=== PATIENT | female | born 1950 | race Caucasian/White ===

== ENCOUNTER → 2016-11-02 | Outpatient (CLI) | payer OTHER ==
[~2016-11-02] MED LIST: IOPAMIDOL (ISOVUE-300) 100 ML BTL IV ONE
== END ==
LOC: FIMAGING 14:19
PROVIDERS: ATTEND Surgery
DX: M47.892 Other spondylosis, cervical region (principal); M43.12 Spondylolisthesis, cervical region; I70.0 Atherosclerosis of aorta; I51.7 Cardiomegaly
CPT/HCPCS: Q9967

== ENCOUNTER → 2016-12-05 | Outpatient (CLI) | payer OTHER | LOC: FIMAGING 15:49 | PROVIDERS: ATTEND Internal Medicine | DX: Z12.31 Encounter for screening mammogram for malignant neoplasm of breast (principal); Z80.3 Family history of malignant neoplasm of breast | CPT/HCPCS: G0202 ==

== ENCOUNTER 2017-03-22 09:20 | Day surgery (SDC) | payer OTHER ==
[2017-03-22] MEDS ORDERED: BUPIVACAINE 0.25% 30 ML SDV ONE (09:34)
[2017-03-22] MEDS ORDERED: LIDOCAINE 1% 2 ML INJ ID PRN (09:40)
[2017-03-22] MEDS ORDERED: LR 1,000 ML IV ONE (09:40)
[2017-03-22] MEDS ORDERED: ceFAZolin 2 GM/DEXTROSE 100 ML IV ONE (10:31)
--- NOTE | 2017-03-22 10:33 | PDHPUP ---
History & Physical Update H&P update statement: This history and physical update is based on an assessment of the patient which was completed after admission or registration (within 24 hours), but prior to the surgery/procedure.
[2017-03-22] MEDS ORDERED: MIDAZOLAM 2 MG/2 ML VIAL IVP ONE (10:43)
[2017-03-22] MEDS ORDERED: MIDAZOLAM 2 MG/2 ML VIAL ONE (10:55)
--- NOTE | 2017-03-22 10:59 | PDANEPAE ---
ANE Past Medical History - Cardiovascular History Hx Hypertension: No Hx Arrhythmias: No Hx Chest Pain: No Hx Coronary Artery / Peripheral Vascular Disease: No Hx CHF / Valvular Disease: No Hx Palpitations: No - Pulmonary History Hx COPD: No Hx Asthma/Reactive Airway Disease: No Hx Recent Upper Respiratory Infection: No Hx Oxygen in Use at Home: No Hx Sleep Apnea: No Sleep Apnea Screening Result - Last Documented: Negative - Neurologic History Hx Cerebrovascular Accident: No Hx Seizures: No Hx Dementia: No - Endocrine History Hx Diabetes: No - Renal History Hx Renal Disorders: No - Liver History Hx Hepatic Disorders: No - Neurological & Psychiatric Hx Hx Neurological and Psychiatric Disorders: Yes Neurological / Psychiatric History Comment: CHRONIC DEPRESSION/ANXIETY, OCD,PTSD - Cancer History Hx Cancer: No - Congenital Disorder History Hx Congenital Disorders: No - GI History Hx Gastrointestinal Disorders: No - Other Health History Other Health History: GLAUCOMA, CERVICAL FACET SYNDROME, DDD, STENOSIS (3 LEVELS ), GLAUCOMA - Chronic Pain History Chronic Pain: Yes (CERVICAL DDD) - Surgical History Prior Surgeries: Primary C/S, Repeat C/S with BTL, T&A, Breast Aug, Mastopexy, Modified Rhytidectomy, LASIK, LASER Trabeculoplasty OU, Cervical steroid injections, PARTIAL RKA ANE Review of Systems Review of Systems: - Exercise capacity METS (RN): 4 METS ANE Patient History - Allergies Allergies/Adverse Reactions: No Known Allergies Allergy (Verified 03/22/17 10:03) - Home Medications Home Medications: DULoxetine [Cymbalta 60 MG (*)] 60 mg PO DAILY 09/28/14 [Last Taken 03/22/17 06: 30] AMOXICILLIN 500 mg PO 03/08/17 [Last Taken Unknown] Indomethacin 25 mg PO PRN PRN 03/08/17 [Last Taken 03/21/17 09:00] Latanoprost DAILY 03/08/17 [Last Taken 03/21/17 09:00] Spironolactone-Hctz 25-25 Tab 25 mg PO DAILY 03/08/17 [Last Taken 03/21/17 09:00 ] - NPO status NPO Since - Liquids (Date): 03/21/17 NPO Since - Liquids (Time): 21:00 NPO Since - Solids (Date): 03/21/17 NPO Since - Solids (Time): 18:30 - Anes Hx Anes Hx: no prior problems - Smoking Hx Smoking Status: Former smoker - Family Anes Hx Family Hx Anesthesia Complications: NONE ANE Labs/Vital Signs - Vital Signs Blood Pressure: 139/86 Heart Rate: 77 Respiratory Rate: 16 O2 Sat (%): 97 Height: 165.1 cm Weight: 73.93 kg ANE Physical Exam - Airway Neck exam: FROM Mouth exam: normal dental/mouth exam - Pulmonary Pulmonary: no respiratory distress, no rales or rhonchi, clear to auscultation - Cardiovascular Cardiovascular: regular rate and rhythym - ASA Status ASA Status: II ANE Anesthesia Plan Anesthesia Plan: general endotracheal anesthesia
[2017-03-22] MEDS ORDERED: PROPOFOL 200 MG/20 ML VIAL ONE (11:01)
[2017-03-22] MEDS ORDERED: fentaNYL 100 MCG/2 ML INJ ONE ×3 (11:01→12:23)
--- NOTE | 2017-03-22 11:10 | POSTOPPROG ---
Post Op Note Date of Operation: 03/22/17 Surgeon: Antony Johnson Anesthesia: GET(General Endotracheal) Pre-op Diagnosis: lesion, right lateral tongue Post-op Diagnosis: same Procedure: right partial glossectomy Findings: lesion r tongue Inf/Abcess present in the surg proc area at time of surgery?: No Depth: Deep Incisional (Fascial) EBL: Minimal Total fluids administered: 500 Complications: none Specimen(s): right tongue lesion
[2017-03-22] MEDS ORDERED: METOCLOPRAMIDE 10 MG/2 ML VIAL IVP PRN (11:29)
[2017-03-22] MEDS ORDERED: HYDROmorphONE/DILAUDID 1 MG/ML INJ IVP PRN (11:29)
[2017-03-22] MEDS ORDERED: HYDROCODONE/APAP 5/325 TAB PO PRN (11:29)
[2017-03-22] MEDS ORDERED: PROMETHAZINE HCL 25 MG/ML INJ IVP PRN (11:29)
[2017-03-22] MEDS ORDERED: MEPERIDINE 25 MG/ML SYR IVP PRN (11:29)
[2017-03-22] MEDS ORDERED: LR 500 ML IV PRN (11:29)
[2017-03-22] MEDS ORDERED: LABETALOL HCL 50 MG/10 ML SYR IVP PRN (11:29)
[2017-03-22] MEDS ORDERED: ACETAMINOPHEN 500 MG TAB PO PRN (11:29)
[2017-03-22] MEDS ORDERED: OXYCODONE/APAP 5/325 TAB PO PRN (11:29)
[2017-03-22] MEDS ORDERED: ONDANSETRON 4 MG/2 ML VIAL IVP PRN (11:29)
[2017-03-22] MEDS ORDERED: NALOXONE HCL 0.4 MG/ML INJ IVP PRN (11:29)
[2017-03-22] MEDS ORDERED: ONDANSETRON 4 MG/2 ML VIAL ONE (11:53)
[2017-03-22] MEDS: fentaNYL 100 MCG/2 ML INJ IVP PRN ×3 (11:58→12:24)
[2017-03-22 12:05] VITALS: PULSE 82; TEMP 96.8
[2017-03-22] MEDS ORDERED: HYDROCODONE/APAP 5/325 TAB ONE (12:23)
[2017-03-22 12:38] VITALS: RESP 16
--- NOTE | 2017-03-22 13:15 | POSTANESTH ---
Post Anesthetic Evaluation Cardiovascular Status: Normal, Stable, Similar to Pre-Op Cond Respiratory Status: Normal, Stable, Similar to Pre-op Cond. Level of Consciousness/Mental Status: Can Participate in Eval, Mildly Sleepy, Arousable Pain Control: Adequate, Prn Tx Ordered Nausea/Vomiting Control: Adequate, Prn Tx Ordered Complications Possibly Related to Anesthesia: None Noted
[2017-03-22 13:19] VITALS: BP 131/74; O2SAT 90
== END 2017-03-22 13:23 | disposition home or self-care (01) ==
LOC: FSGY 09:20
PROVIDERS: ATTEND Otolaryngology
PROC: 0CB70ZX Excision of Tongue, Open Approach, Diagnostic (ICD-10-PCS; principal; 2017-03-22 10:30)
DX: C02.9 Malignant neoplasm of tongue, unspecified (principal); H91.90 Unspecified hearing loss, unspecified ear; F32.9 Major depressive disorder, single episode, unspecified; H40.9 Unspecified glaucoma; Z87.891 Personal history of nicotine dependence
CPT/HCPCS: J0690; J2250; J2405; J2704; J3010

== ENCOUNTER 2017-03-27 06:16 | Day surgery (SDC) | payer OTHER ==
[2017-03-27] MEDS ORDERED: LIDOCAINE 1% 2 ML INJ ID PRN (06:25)
[2017-03-27] MEDS ORDERED: LR 1,000 ML IV ONE (06:25)
[2017-03-27 06:30] VITALS: PULSE 91
[2017-03-27] MEDS ORDERED: ceFAZolin 2 GM/DEXTROSE 100 ML IV ONE (06:45)
--- NOTE | 2017-03-27 06:47 | PDHPUP ---
History & Physical Update H&P update statement: This history and physical update is based on an assessment of the patient which was completed after admission or registration (within 24 hours), but prior to the surgery/procedure. CTAB RRR
[2017-03-27] MEDS ORDERED: LIDOCAINE 1% 300 MG/30 ML SDV ONE (07:00)
[2017-03-27] MEDS ORDERED: BUPIVACAINE 0.5% 30 ML SDV ONE (07:01)
[2017-03-27] MEDS ORDERED: MIDAZOLAM 2 MG/2 ML VIAL IVP ONE (07:07)
--- NOTE | 2017-03-27 07:09 | PDANEPAE ---
ANE Past Medical History - Cardiovascular History Hx Hypertension: No Hx Arrhythmias: No Hx Chest Pain: No Hx Coronary Artery / Peripheral Vascular Disease: No Hx CHF / Valvular Disease: No Hx Palpitations: No - Pulmonary History Hx COPD: No Hx Asthma/Reactive Airway Disease: No Hx Recent Upper Respiratory Infection: No Hx Oxygen in Use at Home: No Hx Sleep Apnea: No Sleep Apnea Screening Result - Last Documented: Negative - Neurologic History Hx Cerebrovascular Accident: No Hx Seizures: No Hx Dementia: No - Endocrine History Hx Diabetes: No - Renal History Hx Renal Disorders: No - Liver History Hx Hepatic Disorders: No - Neurological & Psychiatric Hx Hx Neurological and Psychiatric Disorders: Yes Neurological / Psychiatric History Comment: CHRONIC DEPRESSION/ANXIETY, OCD,PTSD - Cancer History Hx Cancer: No - Congenital Disorder History Hx Congenital Disorders: No - GI History Hx Gastrointestinal Disorders: No - Other Health History Other Health History: GLAUCOMA, CERVICAL FACET SYNDROME, DDD, STENOSIS (3 LEVELS ), GLAUCOMA - Chronic Pain History Chronic Pain: Yes (CERVICAL DDD) - Surgical History Prior Surgeries: Primary C/S, Repeat C/S with BTL, T&A, Breast Aug, Mastopexy, Modified Rhytidectomy, LASIK, LASER Trabeculoplasty OU, Cervical steroid injections, PARTIAL RKA ANE Review of Systems Review of Systems: - Exercise capacity METS (RN): 4 METS ANE Patient History - Allergies Allergies/Adverse Reactions: No Known Allergies Allergy (Verified 03/22/17 10:03) - Home Medications Home Medications: DULoxetine [Cymbalta 60 MG (*)] 60 mg PO DAILY 09/28/14 [Last Taken 03/27/17 05: 00] AMOXICILLIN 500 mg PO 03/08/17 [Last Taken 03/26/17] Indomethacin 25 mg PO PRN PRN 03/08/17 [Last Taken 03/21/17 09:00] Latanoprost DAILY 03/08/17 [Last Taken 03/21/17 09:00] Spironolactone-Hctz 25-25 Tab 25 mg PO DAILY 03/08/17 [Last Taken 03/21/17 09:00 ] - NPO status NPO Since - Liquids (Date): 03/26/17 NPO Since - Liquids (Time): 21:30 NPO Since - Solids (Date): 03/26/17 NPO Since - Solids (Time): 18:00 - Anes Hx Anes Hx: no prior problems - Smoking Hx Smoking Status: Former smoker - Family Anes Hx Family Hx Anesthesia Complications: NONE ANE Labs/Vital Signs - Labs Result Diagrams: 03/27/17 06:40 - Vital Signs Blood Pressure: 147/85 Heart Rate: 91 Respiratory Rate: 16 O2 Sat (%): 96 Height: 165.1 cm Weight: 73.936 kg ANE Physical Exam - Airway Neck exam: FROM Mouth exam: normal dental/mouth exam - Pulmonary Pulmonary: no respiratory distress, no rales or rhonchi, clear to auscultation - Cardiovascular Cardiovascular: regular rate and rhythym, no murmur, rub, or gallop - ASA Status ASA Status: II ANE Anesthesia Plan Anesthesia Plan: GA w LMA
[2017-03-27 07:11] LABS: ANION GAP 13 mEq/L (8-16); CARBON DIOXIDE 21 mEq/l (22-31); CHLORIDE 106 mEq/L (97-110); POTASSIUM 4.2 mEq/L (3.5-5.2); SODIUM 140 mEq/L (134-144)
[2017-03-27] MEDS ORDERED: MIDAZOLAM 2 MG/2 ML VIAL ONE (07:11)
[2017-03-27] MEDS ORDERED: PROPOFOL/EMULSION 500 MG/50 ML BOTTLE IV ONE (07:20)
[2017-03-27] MEDS ORDERED: fentaNYL 100 MCG/2 ML INJ ONE ×4 (07:20→11:42)
[2017-03-27] MEDS ORDERED: LIDOCAINE 2% 5 ML SDV ONE (07:21)
[2017-03-27] MEDS ORDERED: DEXAMETHASONE 4 MG/ML VIAL ONE ×2 (07:22)
[2017-03-27] MEDS ORDERED: ONDANSETRON 4 MG/2 ML VIAL ONE (07:22)
[2017-03-27] MEDS ORDERED: BACITRACIN ZINC 14.2 GM OINTTUBE TP ONE (09:31)
[2017-03-27] MEDS ORDERED: LR 500 ML IV PRN (09:37)
[2017-03-27] MEDS ORDERED: MEPERIDINE 25 MG/ML SYR IVP PRN (09:37)
[2017-03-27] MEDS ORDERED: HYDROCODONE/APAP 5/325 TAB PO PRN (09:37)
[2017-03-27] MEDS ORDERED: LABETALOL HCL 50 MG/10 ML SYR IVP PRN (09:37)
[2017-03-27] MEDS ORDERED: PROMETHAZINE HCL 25 MG/ML INJ IVP PRN (09:37)
[2017-03-27] MEDS ORDERED: ACETAMINOPHEN 500 MG TAB PO PRN (09:37)
[2017-03-27] MEDS ORDERED: ONDANSETRON 4 MG/2 ML VIAL IVP PRN (09:37)
[2017-03-27] MEDS ORDERED: NALOXONE HCL 0.4 MG/ML INJ IVP PRN (09:37)
--- NOTE | 2017-03-27 10:14 | POSTOPPROG ---
Post Op Note Date of Operation: 03/27/17 Surgeon: Cody Bearden Furniture Technician: Stephany Bledsoe PA-C Anesthesia: GET(General Endotracheal) Pre-op Diagnosis: left thumb CMCJ and IPJ arthritis, DeQuervains tenosynovitis Post-op Diagnosis: left thumb CMCJ and IPJ arthritis, DeQuervains tenosynovitis Procedure: left thumb CMCJ arthroplasty, IPJ fusion, 1st dorsal compartment release Inf/Abcess present in the surg proc area at time of surgery?: No EBL: Minimal
[2017-03-27] MEDS ORDERED: HYDROmorphONE/DILAUDID 1 MG/ML INJ ONE (10:27)
--- NOTE | 2017-03-27 10:27 | POSTANESTH ---
Post Anesthetic Evaluation Cardiovascular Status: Other, See Comment (A little tachycardic (109) on arrival. No pain, however.) Respiratory Status: Normal, Stable, Similar to Pre-op Cond. Level of Consciousness/Mental Status: Can Participate in Eval, Mildly Sleepy, Arousable Pain Control: Adequate, Prn Tx Ordered Nausea/Vomiting Control: Adequate, Prn Tx Ordered Complications Possibly Related to Anesthesia: None Noted
[2017-03-27] MEDS: fentaNYL 100 MCG/2 ML INJ IVP PRN ×4 (10:29→11:57)
[2017-03-27] MEDS: HYDROmorphONE/DILAUDID 1 MG/ML INJ IVP PRN ×2 (10:30→10:59)
[2017-03-27] MEDS ORDERED: OXYCODONE/APAP 5/325 TAB ONE ×2 (10:52→12:17)
[2017-03-27] MEDS: OXYCODONE/APAP 5/325 TAB PO PRN ×2 (10:57→12:19)
[2017-03-27 11:10] VITALS: TEMP 98.4
[2017-03-27 11:39] VITALS: RESP 12
[2017-03-27 13:36] VITALS: BP 99/52; O2SAT 91
--- NOTE | 2017-03-28 05:37 | GOP ---
[f rep st] OPERATIVE REPORT PATIENT: ETELVINA HERNANDEZ DATE OF SERVICE: 03/27/17 PATIENT DATE OF : 1950 SURGEON: Cody Bearden M.D. QUILTING MACHINE OPERATOR: Stephany Bledsoe PA-C Mrs. Yates assistance was medically necessary for patient positioning and the retraction of vital structures. ANESTHESIA: General / regional anesthesia by surgeon PRE-OPERATIVE DIAGNOSES: Left thumb carpometacarpal joint arthritis (ICD-10 code M13.849 Hand arthritis) Left thumb interaphlanageal joint arthritis (ICD-10 code M13.849 Hand arthritis ) Left wrist DeQuervains tenosynovitis (ICD-10 code M65.4 DeQuervains tenosynovitis) POST-OPERATIVE DIAGNOSES: Left thumb carpometacarpal joint arthritis (ICD-10 code M13.849 Hand arthritis) Left thumb interaphlanageal joint arthritis (ICD-10 code M13.849 Hand arthritis ) Left wrist DeQuervains tenosynovitis (ICD-10 code M65.4 DeQuervains tenosynovitis) OPERATIVE PROCEDURES: CPT code 85783 -- Carpometacarpal joint interposition arthroplasty CPT code 88413 -- Carpectomy of one bone (trapezium) CPT code 65232 -- Transfer or transplant of tendon, CMC area or dorsum of hand CPT code 06584 -- Insertion of pin for skeletal traction CPT code 58318 Left wrist first dorsal compartment release CPT code 65700 Left wrist first dorsal compartment radical tenosynovectomy CPT code 62695 - Left wrist neuroplasty of the superficial sensory branch of the radial nerve CPT code 52845 Left thumb interphalangeal joint capsulotomy CPT code 30475 Left thumb interphalangeal joint fusion CPT code 69417 Left extensor pollicis longus repair CPT code 99985 -- Fluoroscopy by surgeon up to one hour CPT code 20398 -- Application of a short arm splint Modifier 47 -- Regional anesthesia by surgeon EBL: 2cc COMPLICATIONS: None TOURNIQUET TIME: 120 minutes at 250 mmHg IMPLANTS: Arthrex mini Tightrope with two 2.6mm metallic buttons, Acutrak II mini 30mm screw BRIEF CLINICAL NOTE: This is a very pleasant 66 year old female with a significant history for left thumb carpometacarpal joint arthritis, leftthumb interphalangeal joint arthritis, and left wrist DeQuervains tenosynovitis. As such, I have discussed the risks, benefits, alternatives, and complications associated with both non-operative (specifically, observation, splinting, hand therapy, and corticosteroid injections) and operative (specifically, left thumb trapeziectomy with carompetacarpal arthroplasty and suture button suspensionplasty, left thumb interphalangeal joint fusion, and left wrist first dorsal compartment release) forms of treatment. The patient fully understood the risks, benefits, alternatives, and complications associated with both forms of treatment and wished to proceed with operative intervention as outlined above. The patient has signed the informed consent form for surgery. OPERATIVE NOTE: On the day of surgery, all of the patients questions were answered. The patient was then transferred from the pre-operative area into the operating room and a formal, Time-Out procedure was performed. The patient was identified by name, medical record number, social security number, and date of . In addition, the patients left upper extremity was identified as the correct portion of the patients body for surgery with the patients left thumb and left wrist being identified as the correct portions of that extremity for surgery. The anesthesia team administered pre-operative antibiotics for prophylaxis. The brachium was then padded with webril and tourniquet was applied. The extremity was then prepped and draped in the normal sterile fashion. A sterile marking pen was then utilized to sulma out a curvilinear incision overlying the dorsal aspect of the left thumb CMC joint extending proximally over the first dorsal compartment. A second incision was marked out overlying the dorsal and ulnar aspect of the index metacarpal. Lastly, a third incision was marked out overlying the dorsal aspect of the thumb interphalangeal joint in an H-type fashion An Esmarch was then utilized to exsanguinate the upper extremity and the tourniquet was insufflated to 250mm Hg. A number 15 blade was then used to incise the skin overlying the thumb CMC joint. Meticulous hemostasis was obtained in the subcutaneous plane. The deep branch of the radial artery and its venae comitantes were identified and protected. Superficial sensory nerve branches were identified overlying the first dorsal compartment and they were gently released from the surrounding soft tissue and re-routed radial to the first dorsal compartment to perform a neuroplasty. The extensor pollicis brevis and the abductor pollicis longus were then identified as they ran through the first dorsal compartment. The first dorsal compartment was then released in its entirely along its dorsal border. Following the initial release, the entire compartment was thoroughly inspected to evaluate for any possible sub-compartments. No sub-compartments were identified. Of note, the patient demonstrated a significant amount of hypertrophic synovium surrounding both the extensor pollicis brevis and all slips of the abductor pollicis longus. As such, a radical tenosynovectomy was performed for both of these tendons throughout the first dorsal compartment. Next, a new number 15 blade was then used to longitudinally incise the left thumb carpometacarpal joint capsule. The trapezium was then exposed in its entirety utilizing a number 15 blade and a 69 capitan grande band blade. Next, an osteotome and a needle nose rongeur was utilized to perform a complete trapeziectomy. Following this, the incision overlying the dorsal aspect of the index metacarpal was then made utilizing a number 15 blade. Once again, several branches of the superficial branch of the radial sensory nerve were identified and protected. In addition, the extensor tendons to the index finger were also identified and protected. Following this, the periosteum overlying the dorsal aspect of the index metacarpal was then split longitudinally with a #15 blade. The periosteum was then elevated only along the ulnar aspect of the index metacarpal. Next the 1.1 mm guidewire for the Arthrex mini TightRope was then advanced from the thumb metacarpal base across the first webspace and into the index metacarpal in a noelle-cortical fashion, exiting along the ulnar aspect of the index metacarpal. The position of the C-wire was then confirmed utilizing C- arm fluoroscopy in both the PA and lateral planes. Following this, the guidewire was then fully advanced and the Arthrex mini TightRope was threaded through the Nitinol loop and the TightRope was then threaded through the hole that had been created in the thumb metacarpal base and the index metacarpal base. At this point, the tension on the TightRope was preliminarily set with two knots. Following this, live intraoperative C-arm fluoroscopy was then utilized to confirm that the patient had full radial abduction, full palmar abduction, and full opposition. In addition, fluoroscopy demonstrated no impingement between the thumb metacarpal base and the index metacarpal base. In addition, there was no impingement between the thumb metacarpal base and the distal pole of the scaphoid with axial loading of the thumb. Thus, several additional knots were placed to secure the TightRope permanently at the selected length. Static C-arm images were then obtained in both the PA and lateral planes and they were saved and printed. Both wounds were then copiously irrigated with sterile normal saline. The periosteum overlying the index metacarpal was then re-approximated utilizing 3-0 Vicryl sutures. Next, one slip of the APL was transferred to the FCR to serve as an interposition. The capsule of the CMC joint was then re-approximated utilizing 2-0 Vicryl sutures. The subcutaneous plane for both wounds was re-approximated with 3-0 Vicryl sutures and the skin was re-approximated with a running 4-0 Monocryl. Attention was then turned to the left thumb interphalangeal joint. A new number 15 blade was utilized to incise the skin. Distal and proximal based skin flaps were elevated and tied back with 4-0 nylon sutures. Meticulous hemostasis was obtained in the subcutaneous plane. The extensor pollicis longus was found to be severely attenuated overlying the dorsal aspect of the interaphalangeal joint. The EPL was then incised transversely to expose the underlying dorsal capsule. The dorsal capsule was then incised longitudinally to expose the interphalangeal joint. The radial and ulnar collateral ligaments were then released off of the proximal phalangeal head and the interphalangeal joint was brought into a position of hyperflexion to expose both articular surfaces. The proximal phalangeal head and the distal phalangeal base were then denuded of all remaining cartilage with a rongeur. A 4.0mm round luz maria was then used to create two parallel-sided surfaces for fusion. PA and lateral C- arm fluoroscopic images demonstrated appropriate bony resections and an appropriate anticipated fusion angle. Next, a 0.045 C-wire was advanced in anterograde fashion starting from the distal phalangeal base and exiting at the tip of the thumb. Center-center positioning of the C-wire was confirmed with fluoroscopic guidance during insertion. The C-wire was then removed and the guide-wire for the Acutrak II mini screw was then inserted in a retrograde fashion into the hole which had been created by the C-wire. The distal and proximal phalanx were then reduced and the guide-wire was further advanced into the proximal phalanx. The guide-wire was then over-drilled with the long and short drill bits. The wire was measured at a length of 30 mm. As such, a 30 mm Acutrak II mini screw was selected and was inserted over the guide-wire under fluoroscopic control. After the screw was fully seated, the guide-wire was removed and final PA, lateral, and oblique C-arm images were obtained. All images demonstrated excellent compression at the fusion site as well as appropriate implant positioning and length in all views. These images were printed and saved, The interphalangeal joint incision was then copiously irrigated with sterile normal saline. The Extensor pollicis longus was repaired with 2-0 Vicryl sutures and the skin was re-approximated with 4-0 nylon sutures. The skin was then cleaned with sterile normal saline and dried. Dermabond was then applied to the thumb CMC joint incision and the index metacarpal incision. A mixture of 1% lidocaine and 0.5% Marcaine was then utilized to perform regional blocks of all operative sites. Xeroform gauze dressings were then applied followed by a dry sterile dressing and a short-arm thumb spica splint. Once the splint was completely in place, the tourniquet was deflated. One the tourniquet was completely deflated, all fingers and the thumb demonstrated brisk capillary refill. The patient was then reversed from anesthesia and transferred from the operating room table to the postoperative gurney and transferred from the operating room to the PACU in stable condition. POST-OPERATIVE PLAN: The patient will remain in the current splint and dressing for the next 2 weeks. I will see the patient in the office in 2 weeks. During this visit, the original splint will be removed, the incisions will be examined, and the patient will be transitioned into short-arm thumb spica orthoplast and started on a course of early carpometacarpal joint ROM. /[id number]/MODL MTDD
== END 2017-03-27 13:19 | disposition home or self-care (01) ==
LOC: FSGY 06:16
PROVIDERS: ATTEND Orthopaedic Surgery Hand Surgery
PROC: 0LN80ZZ Release Left Hand Tendon, Open Approach (ICD-10-PCS; principal; 2017-03-27 07:15)
PROC: 0RGX04Z Fusion of Left Finger Phalangeal Joint with Internal Fixation Device, Open Approach (ICD-10-PCS; principal; 2017-03-27 07:15)
PROC: 0RUT0JZ Supplement Left Carpometacarpal Joint with Synthetic Substitute, Open Approach (ICD-10-PCS; principal; 2017-03-27 07:15)
DX: M18.12 Unilateral primary osteoarthritis of first carpometacarpal joint, left hand (principal); M19.042 Primary osteoarthritis, left hand; M65.4 Radial styloid tenosynovitis [de Quervain]; Z87.891 Personal history of nicotine dependence
CPT/HCPCS: 25000; 25447; 26860; C1769; C1713; J0690; J1100; J1170; J2250; J2405; J2704; J3010

== ENCOUNTER 2017-06-21 06:21 | Day surgery (SDC) | payer OTHER ==
--- NOTE | 2017-06-21 05:36 | PDANEPAE ---
ANE History of Present Illness 66 yo female with R thumb OA for arthroplasty. L thumb was done in March 2017. ANE Past Medical History - Cardiovascular History Hx Hypertension: No Hx Arrhythmias: No Hx Chest Pain: No Hx Coronary Artery / Peripheral Vascular Disease: No Hx CHF / Valvular Disease: No Hx Palpitations: No - Pulmonary History Hx COPD: No Hx Asthma/Reactive Airway Disease: No Hx Recent Upper Respiratory Infection: No Hx Oxygen in Use at Home: No Hx Sleep Apnea: No Sleep Apnea Screening Result - Last Documented: Negative - Neurologic History Hx Cerebrovascular Accident: No Hx Seizures: No Hx Dementia: No - Endocrine History Hx Diabetes: No Obesity: mild - Renal History Hx Renal Disorders: No - Liver History Hx Hepatic Disorders: No - Neurological & Psychiatric Hx Hx Neurological and Psychiatric Disorders: Yes Neurological / Psychiatric History Comment: CHRONIC DEPRESSION/ANXIETY, OCD,PTSD - Cancer History Hx Cancer: Yes Cancer History Comment: tongue - Congenital Disorder History Hx Congenital Disorders: No - GI History Hx Gastrointestinal Disorders: No - Other Health History Other Health History: GLAUCOMA, CERVICAL FACET SYNDROME, DDD, STENOSIS (3 LEVELS ), GLAUCOMA - Chronic Pain History Chronic Pain: Yes (CERVICAL DDD) - Surgical History Prior Surgeries: Primary C/S, Repeat C/S with BTL, T&A, Breast Aug, Mastopexy, Modified Rhytidectomy, LASIK, LASER Trabeculoplasty OU, Cervical steroid injections, PARTIAL RKA, L hand sx with thumb arthroplasty, tongue sx for SCCA/ excised, SLT OU 05/28 ANE Review of Systems Review of systems is: negative Review of Systems: - Exercise capacity METS (RN): 4 METS - Systems Constitutional: Reports: no symptoms Respiratory: Reports: no symptoms Gastrointestinal: Reports: no symptoms ANE Patient History - Allergies Allergies/Adverse Reactions: No Known Allergies Allergy (Verified 03/22/17 10:03) - Home Medications Home medications: home medication list seen and reviewed Home Medications: DULoxetine [Cymbalta 60 MG (*)] 60 mg PO DAILY 09/28/14 [Last Taken 03/27/17 05: 00] AMOXICILLIN 500 mg PO 03/08/17 [Last Taken 03/26/17] Indomethacin 25 mg PO PRN PRN 03/08/17 [Last Taken 03/21/17 09:00] Latanoprost DAILY 03/08/17 [Last Taken 03/21/17 09:00] Spironolactone-Hctz 25-25 Tab 25 mg PO DAILY 03/08/17 [Last Taken 03/21/17 09:00 ] - NPO status NPO Status: no food or drink >8 hours - Anes Hx Anes Hx: no prior problems - Smoking Hx Smoking Status: Former smoker - Alcohol Use Alcohol Use: Occasionally - Family Anes Hx Family Anes Hx: neg - N/A Family Hx Anesthesia Complications: NONE ANE Labs/Vital Signs - Vital Signs Vital Signs: reviewed preoperatively; see RN documention for details Height: 165.1 cm Weight: 73.936 kg ANE Physical Exam - Airway Neck exam: FROM Mallampati Score: Class 2 Mouth exam: normal dental/mouth exam - Pulmonary Pulmonary: clear to auscultation - Cardiovascular Cardiovascular: regular rate and rhythym - ASA Status ASA Status: II ANE Anesthesia Plan Anesthesia Plan: GA w LMA
[2017-06-21] MEDS ORDERED: LIDOCAINE 1% 2 ML INJ ID PRN (06:52)
[2017-06-21] MEDS ORDERED: LR 1,000 ML IV ONE (06:52)
--- NOTE | 2017-06-21 06:55 | PDHPUP ---
History & Physical Update H&P update statement: This history and physical update is based on an assessment of the patient which was completed after admission or registration (within 24 hours), but prior to the surgery/procedure. RRR CTAB
[2017-06-21] MEDS ORDERED: MIDAZOLAM 2 MG/2 ML VIAL IVP ONE (06:59)
[2017-06-21] MEDS ORDERED: DEXAMETHASONE 4 MG/ML VIAL ONE ×2 (07:05)
[2017-06-21] MEDS ORDERED: PROPOFOL/EMULSION 500 MG/50 ML BOTTLE IV ONE ×2 (07:05→08:30)
[2017-06-21] MEDS ORDERED: fentaNYL 100 MCG/2 ML INJ ONE ×5 (07:05→10:43)
[2017-06-21] MEDS ORDERED: LIDOCAINE 2% 5 ML SDV ONE (07:05)
[2017-06-21] MEDS ORDERED: LIDOCAINE 1% 300 MG/30 ML SDV ONE (07:09)
[2017-06-21] MEDS ORDERED: BUPIVACAINE 0.5% 30 ML SDV ONE (07:10)
[2017-06-21] MEDS ORDERED: TRIAMCINOLONE ACETONIDE 40 MG/ML VIAL ONE (07:10)
[2017-06-21] MEDS ORDERED: PROPOFOL 200 MG/20 ML VIAL ONE (07:10)
[2017-06-21] MEDS ORDERED: ceFAZolin 2 GM/SWFI 20 ML SYR IVP ONE (07:13)
[2017-06-21] MEDS ORDERED: ceFAZolin 2 GM/SWFI 2 GM/20 ML SYR IVP ONE (07:14)
[2017-06-21] MEDS ORDERED: ONDANSETRON 4 MG/2 ML VIAL ONE (08:30)
[2017-06-21] MEDS ORDERED: NALOXONE HCL 0.4 MG/ML INJ IVP PRN (09:24)
[2017-06-21] MEDS ORDERED: DIAZEPAM 10 MG/2 ML SYR IVP PRN (09:24)
[2017-06-21] MEDS ORDERED: ACETAMINOPHEN 500 MG TAB PO PRN (09:24)
[2017-06-21] MEDS ORDERED: PROMETHAZINE HCL 25 MG/ML INJ IVP PRN (09:24)
[2017-06-21] MEDS ORDERED: BACITRACIN ZINC 14.2 GM OINTTUBE TP ONE (09:54)
[2017-06-21 10:07] VITALS: PULSE 82
[2017-06-21] MEDS: fentaNYL 100 MCG/2 ML INJ IVP PRN ×3 (10:31→11:10)
[2017-06-21] MEDS ORDERED: oxyCODONE IR 5 MG TAB ONE ×2 (10:59→11:34)
[2017-06-21] MEDS: oxyCODONE IR 5 MG TAB PO PRN ×2 (11:00→11:38)
[2017-06-21 11:07] VITALS: TEMP 97.7
[2017-06-21] MEDS ORDERED: DIAZEPAM 10 MG/2 ML SYR ONE (11:34)
--- NOTE | 2017-06-21 12:09 | POSTANESTH ---
Post Anesthetic Evaluation Cardiovascular Status: Normal, Stable Respiratory Status: Normal, Stable Level of Consciousness/Mental Status: Can Participate in Eval, Moderately Sleepy Pain Control: Adequate, Prn Tx Ordered Nausea/Vomiting Control: Adequate, Prn Tx Ordered Complications Possibly Related to Anesthesia: None Noted
[2017-06-21] MEDS ORDERED: KETOROLAC 30 MG/1 ML SDV IVP ONE (12:22)
[2017-06-21] MEDS ORDERED: ACETAMINOPHEN 500 MG TAB ONE (12:45)
[2017-06-21 13:14] VITALS: BP 104/63; RESP 12; O2SAT 95
--- NOTE | 2017-06-22 02:09 | GOP ---
[f rep st] OPERATIVE REPORT PATIENT: ETELVINA HERNANDEZ DATE OF SERVICE: 06/21/17 PATIENT DATE OF : 1950 SURGEON: Cody Bearden M.D. CHIEF ACCOUNTING OFFICER: Stephany Bledsoe PA-C Mrs. Yates assistance was medically necessary for patient positioning and the retraction of vital structures. ANESTHESIA: General / regional anesthesia by surgeon PRE-OPERATIVE DIAGNOSES: Right thumb carpometacarpal joint arthritis (ICD-10 code M13.849 -- Hand arthritis) Right thumb interaphlanageal joint arthritis (ICD-10 code M13.849 -- Hand arthritis) Right carpal tunnel syndrome (ICD-10 code G56.01 Right carpal tunnel syndrome) Left thumb metacarpophalangeal joint arthritis (ICD-10 code M13.849 Hand arthritis) POST-OPERATIVE DIAGNOSES: Right thumb carpometacarpal joint arthritis (ICD-10 code M13.849 -- Hand arthritis) Right thumb interaphlanageal joint arthritis (ICD-10 code M13.849 -- Hand arthritis) Right carpal tunnel syndrome (ICD-10 code G56.01 Right carpal tunnel syndrome) Left thumb metacarpophalangeal joint arthritis (ICD-10 code M13.849 Hand arthritis) OPERATIVE PROCEDURES: CPT code 27946 -- Carpometacarpal joint interposition arthroplasty CPT code 72054 -- Carpectomy of one bone (trapezium) CPT code 61058 -- Transfer or transplant of tendon, CMC area or dorsum of hand CPT code 63759 -- Insertion of pin for skeletal traction CPT code 66025 -- Right thumb interphalangeal joint capsulotomy CPT code 38312 -- Right thumb interphalangeal joint fusion CPT code 66485 Right thumb extensor pollicis longus repair CPT code 05013 Right open carpal tunnel release CPT code 74637 Left thumb metacarpophalangeal joint corticosteroid injection CPT code 11007 -- Fluoroscopy by surgeon up to one hour CPT code 07753 -- Application of a short arm splint Modifier 47 -- Regional anesthesia by surgeon EBL: 2cc COMPLICATIONS: None TOURNIQUET TIME: 120 minutes at 250 mmHg IMPLANTS: Arthrex mini Tightrope with two 2.6mm metallic buttons, Acutrak II mini 30mm screw BRIEF CLINICAL NOTE: This is a very pleasant 66 year old female with a significant history for right thumb carpometacarpal joint arthritis, right thumb interphalangeal joint arthritis, right carpal tunnel syndrome, and left thumb metacarpophalangeal joint arthritis. As such, I have discussed the risks , benefits, alternatives, and complications associated with both non-operative ( specifically, observation, splinting, hand therapy, and corticosteroid injections) and operative (specifically, right thumb trapeziectomy with carompetacarpal joint arthroplasty and suture button suspensionplasty, right thumb interphalangeal joint fusion, and right open carpal tunnel release) forms of treatment. The patient fully understood the risks, benefits, alternatives, and complications associated with both forms of treatment and wished to proceed with right thumb trapeziectomy with carompetacarpal joint arthroplasty and suture button suspensionplasty, right thumb interphalangeal joint fusion, right open carpal tunnel release, and left thumb metacarpophalangeal joint corticosteroid injection. The patient has signed the informed consent form for surgery. OPERATIVE NOTE: On the day of surgery, all of the patients questions were answered. The patient was then transferred from the pre-operative area into the operating room and a formal, Time-Out procedure was performed. The patient was identified by name, medical record number, social security number, and date of . In addition, the patients right upper extremity was identified as the correct portion of the patients body for surgery with the patients right thumb and right wrist being identified as the correct portions of that extremity for surgery. In addition, the patients left thumb metacarpophalangeal joint was identified as the correct side and site for injection. The anesthesia team administered pre-operative antibiotics for prophylaxis. The left thumb was then prepped with sterile technique and a mixture of kenalog (0.7cc) and 1% lidocaine (0.7cc) was then injected into the left thumb metacarpophalangeal joint. A band-aid was applied to the injection site. The right brachium was then padded with webril and tourniquet was applied. The right upper extremity was then prepped and draped in the normal sterile fashion. A sterile marking pen was then utilized to sulma out a curvilinear incision overlying the dorsal aspect of the right thumb CMC joint. A second incision was marked out overlying the dorsal and ulnar aspect of the right index metacarpal. Lastly, a third incision was marked out in line with the radial border of the ring finger along the radial aspect of the hypothenar eminence. An Esmarch was then utilized to exsanguinate the right upper extremity and the tourniquet was inflated to 250mm Hg. A #15 blade was then used to incise the skin overlying the carpal tunnel. Meticulous hemostasis was obtained in the subcutaneous plane. The palmar fascia was split longitudinally utilizing a #15 blade. Following this, the transverse carpal ligament was then released utilizing a #15 blade. The release was completed distally utilizing a pair of Littler scissors taking great care to protect the superficial and deep palmar arches. At the completion of the procedure, the transverse carpal ligament had been released in its entirety and the median nerve was completely decompressed throughout the length of the carpal tunnel. The carpal tunnel wound was copiously irrigated with sterile normal saline and the skin was re-approximated with 4-0 nylon sutures. Attention was then turned to the right thumb CMC joint. A number 15 blade was then used to incise the skin overlying the right thumb CMC joint. Meticulous hemostasis was obtained in the subcutaneous plane. The deep branch of the radial artery and its venae comitantes were identified and protected. Superficial sensory nerve branches were identified and protected. In addition, the APL, EPB, and EPL tendons were identified and protected. A new number 15 blade was then used to longitudinally incise the right thumb carpometacarpal joint capsule. The trapezium was then exposed in its entirety utilizing a number 15 blade and a 69 [place] blade. Next, an osteotome and a needle nose rongeur was utilized to perform a complete trapeziectomy. Following this, the incision overlying the dorsal aspect of the index metacarpal was then made utilizing a number 15 blade. Once again, several branches of the superficial branch of the radial sensory nerve were identified and protected. In addition, the extensor tendons to the index finger were also identified and protected. Following this, the periosteum overlying the dorsal aspect of the index metacarpal was then split longitudinally with a #15 blade. The periosteum was then elevated only along the ulnar aspect of the index metacarpal. Next the 1.1 mm guidewire for the Arthrex mini TightRope was then advanced from the thumb metacarpal base across the first webspace and into the index metacarpal in a noelle-cortical fashion, exiting along the ulnar aspect of the index metacarpal. The position of the C-wire was then confirmed utilizing C- arm fluoroscopy in both the PA and lateral planes. Following this, the guidewire was then fully advanced and the Arthrex mini TightRope was threaded through the Nitinol loop and the TightRope was then threaded through the hole that had been created in the thumb metacarpal base and the index metacarpal base. At this point, the tension on the TightRope was preliminarily set with two knots. Following this, live intraoperative C-arm fluoroscopy was then utilized to confirm that the patient had full radial abduction, full palmar abduction, and full opposition. In addition, fluoroscopy demonstrated no impingement between the thumb metacarpal base and the index metacarpal base. In addition, there was no impingement between the thumb metacarpal base and the distal pole of the scaphoid with axial loading of the thumb. Thus, several additional knots were placed to secure the TightRope permanently at the selected length. Static C-arm images were then obtained in both the PA and lateral planes and they were saved and printed. Both wounds were then copiously irrigated with sterile normal saline. The periosteum overlying the index metacarpal was then re-approximated utilizing 3-0 Vicryl sutures. Next, one slip of the APL was transferred to the FCR to serve as an interposition. The capsule of the CMC joint was then re-approximated utilizing 2-0 Vicryl sutures. The subcutaneous plane for both wounds was re-approximated with 3-0 Vicryl sutures and the skin was re-approximated with a running 4-0 Monocryl. Attention was then turned to the right thumb interphalangeal joint. A new number 15 blade was utilized to incise the skin. Distal and proximal based skin flaps were elevated and tied back with 4-0 nylon sutures. Meticulous hemostasis was obtained in the subcutaneous plane. The extensor pollicis longus was found to be severely attenuated overlying the dorsal aspect of the interaphalangeal joint. The EPL was then incised transversely to expose the underlying dorsal capsule. The dorsal capsule was then incised longitudinally to expose the interphalangeal joint. The radial and ulnar collateral ligaments were then released off of the proximal phalangeal head and the interphalangeal joint was brought into a position of hyperflexion to expose both articular surfaces. The proximal phalangeal head and the distal phalangeal base were then denuded of all remaining cartilage with a rongeur. A 4.0mm round luz maria was then used to create two parallel-sided surfaces for fusion. PA and lateral C- arm fluoroscopic images demonstrated appropriate bony resections and an appropriate anticipated fusion angle. Next, a 0.045 C-wire was advanced in anterograde fashion starting from the distal phalangeal base and exiting at the tip of the thumb. Center-center positioning of the C-wire was confirmed with fluoroscopic guidance during insertion. The C-wire was then removed and the guide-wire for the Acutrak II mini screw was then inserted in a retrograde fashion into the hole which had been created by the C-wire. The distal and proximal phalanx were then reduced and the guide-wire was further advanced into the proximal phalanx. The guide-wire was then over-drilled with the long and short drill bits. The wire was measured at a length of 30 mm. As such, a 30 mm Acutrak II mini screw was selected and was inserted over the guide-wire under fluoroscopic control. After the screw was fully seated, the guide-wire was removed and final PA, lateral, and oblique C-arm images were obtained. All images demonstrated excellent compression at the fusion site as well as appropriate implant positioning and length in all views. These images were printed and saved, The interphalangeal joint incision was then copiously irrigated with sterile normal saline. The Extensor pollicis longus was repaired with 2-0 Vicryl sutures and the skin was re-approximated with 4-0 nylon sutures. The skin was then cleaned with sterile normal saline and dried. Dermabond was then applied to the thumb CMC joint incision and the index metacarpal incision. A mixture of 1% lidocaine and 0.5% Marcaine was then utilized to perform regional blocks of all operative sites. Xeroform gauze dressings were then applied followed by a dry sterile dressing and a short-arm thumb spica splint. Once the splint was completely in place, the tourniquet was deflated. One the tourniquet was completely deflated, all fingers and the thumb demonstrated brisk capillary refill. The patient was then reversed from anesthesia and transferred from the operating room table to the postoperative dandy and transferred from the operating room to the PACU in stable condition. POST-OPERATIVE PLAN: The patient will remain in the current splint and dressing for the next 2 weeks. I will see the patient in the office in 2 weeks. During this visit, the original splint will be removed, the incisions will be examined, and the patient will be transitioned into short-arm thumb spica orthoplast and started on a course of early carpometacarpal joint ROM. /[id number]/MODL MTDD
== END 2017-06-21 13:15 | disposition home or self-care (01) ==
LOC: FSGY 06:21
PROVIDERS: ATTEND Orthopaedic Surgery Hand Surgery
DX: M18.0 Bilateral primary osteoarthritis of first carpometacarpal joints (principal); G56.01 Carpal tunnel syndrome, right upper limb; M19.041 Primary osteoarthritis, right hand; M79.644 Pain in right finger(s); F32.9 Major depressive disorder, single episode, unspecified; Z87.891 Personal history of nicotine dependence
CPT/HCPCS: C1713; J0690; J1100; J2250; J2405; J2704; J3010; J3301